=== PATIENT | female | born 1960 | race Asian ===

== ENCOUNTER 2021-06-01 01:04 | Emergency (ER) | payer MEDICAID ==
[~2021-06-01] VITALS: Ht 160 cm; Wt 61.0 kg
[2021-06-01] MEDS ORDERED: DESMOPRESSIN ACETATE 4MCG/ML AMP IV ONE (01:45)
[2021-06-01 02:41] LABS: BASOPHILS % 3.1 % (0.0-2.0); EOSINOPHILS % 1.6 % (0.0-5.0); HEMATOCRIT. 24.1 % (36.0-48.0); HEMOGLOBIN. 7.9 g/dL (12.0-16.0); MEAN CORPUSCULAR HEMOGLOBIN 33.6 pg (28.0-32.0); MEAN PLATELET VOLUME 8.6 fl (7.4-10.4); MONOCYTES % 4.5 % (2.0-8.0); NEUTROPHILS % 58.8 % (40.0-76.0); PLATELET 318 x1000/uL (130-400); RED BLOOD CELL COUNT 2.36 mill/uL (4.2-5.4)
[2021-06-01 04:30] VITALS: BP 125/66
[2021-06-01 05:10] LABS: PLATELET ESTIMATE NORMAL
[2021-06-01] MEDS ORDERED: OXYMETAZOLINE HCL NASAL SPRAY 15ML BOTHNSTRLS SCH (09:00)
== END 2021-06-01 05:12 | disposition home or self-care (01) ==
LOC: ER 01:04
DX: E11.22 Type 2 diabetes mellitus with diabetic chronic kidney disease (principal); N18.9 Chronic kidney disease, unspecified; D64.9 Anemia, unspecified; I10 Essential (primary) hypertension; Z98.890 Other specified postprocedural states
CPT/HCPCS: 36415; 80048; 82962; 85025; 86850; 86900; 86901; 96374; 99283; J2597

== ENCOUNTER 2023-05-02 08:33 | Emergency (ER) | payer MEDICAID, OTHER ==
[~2023-05-02] VITALS: Ht 157.5 cm; Wt 68.0 kg
[2023-05-02 08:37] VITALS: O2SAT 96
[2023-05-02 09:17] LABS: BASOPHILS % 0.8 % (0.0-2.0); DIFFERENTIAL COMMENT 0; EOSINOPHILS % 3.8 % (0.0-5.0); HEMATOCRIT. 36.1 % (36.0-48.0); HEMOGLOBIN. 11.3 g/dL (12.0-16.0); LYMPHOCYTES % 19.2 % (20.0-50.0); MEAN CORPUSCULAR HEMOGLOBIN 24.4 pg (28.0-32.0); MEAN CORPUSCULAR HGB CONC 31.3 g/dL (31.0-37.0); MEAN CORPUSCULAR VOLUME 77.9 fL (81.0-99.0); MEAN PLATELET VOLUME 8.5 fl (7.4-10.4); MONOCYTES % 5.5 % (2.0-8.0); NEUTROPHILS % 70.7 % (40.0-76.0); PLATELET 126 x1000/uL (130-400); RED BLOOD CELL COUNT 4.63 mill/uL (4.2-5.4); WHITE BLOOD COUNT 5.6 x1000/uL (4.5-11.0)
[2023-05-02 10:30] LABS: ALANINE AMINOTRANSFERASE 17 IU/L (10-49); ALBUMIN 4.5 g/dL (3.2-4.8); ASPARTATE AMINOTRANSFERASE 50 IU/L (<34); BILIRUBIN TOTAL 0.5 mg/dL (0.1-1.0); CALCIUM 9.9 mg/dL (8.7-10.4); CARBON DIOXIDE 28 mEq/L (21-32); CHLORIDE 94 mEq/L (98-107); GLUCOSE 195 mg/dL (70-105); POTASSIUM 4.3 mEq/L (3.5-5.1); PROTEIN TOTAL 8.3 g/dL (6.0-8.3); SODIUM 130 mEq/L (136-145); UREA NITROGEN BLOOD 29 mg/dL (9-23)
[2023-05-02 12:19] LABS: INR 0.9; PARTIAL THROMBOPLASTIN TIME 50.7 sec (23.4-31.0); PROTHROMBIN TIME 10.2 sec (9.6-11.0)
[2023-05-02 17:36] VITALS: BP 134/59; PULSE 91; RESP 16; TEMP 98.4
== END 2023-05-02 18:30 | disposition home or self-care (01) ==
LOC: ER 08:33
DX: R04.0 Epistaxis (principal); T82.838A Hemorrhage due to vascular prosthetic devices, implants and grafts, initial encounter; I12.0 Hypertensive chronic kidney disease with stage 5 chronic kidney disease or end stage renal disease; E11.22 Type 2 diabetes mellitus with diabetic chronic kidney disease; N18.6 End stage renal disease; N17.9 Acute kidney failure, unspecified
CPT/HCPCS: 80053; 85025; 85610; 85730; 36415; 99291; Z7610 ×3; 99283